=== PATIENT | male | born 1950 | race Caucasian/White ===

== ENCOUNTER 2018-02-02 17:15 | Emergency (ER) | payer MEDICARE, SELFPAY ==
[2018-02-02 17:16] VITALS: BP 159/98; PULSE 98; RESP 16; TEMP 36.1; O2SAT 98; BMI 31.8
[2018-02-02 17:22] VITALS: BP 176/84; PULSE 102; RESP 19; O2SAT 95
[2018-02-02] MEDS: MethylPREDNISolone 125 MG/2 ML Vial IV (17:38)
[2018-02-02] MEDS: DiphenhydrAMINE 50 MG/ML Syringe 25 MG IV (17:38)
--- NOTE | 2018-02-02 17:41 | NURSING ---
NO LW OR POA
[2018-02-02 17:46] VITALS: BP 147/90; PULSE 93; RESP 17; O2SAT 94
[2018-02-02 18:15] VITALS: BP 149/85; PULSE 86; RESP 14; O2SAT 97
--- NOTE | 2018-02-02 18:57 | ED.VISSUMM ---
- ER Visit Summary Date of Service: 02/02/18 Chief Complaint: Bee stings History of Present Illness: The patient is a 67 M with a sling to his right ear and right wrist. He has had some swelling to the area and he feels like he has some increased work of breathing. This happened about 30 minutes prior to arrival. Patient states that many years ago he had severe swelling with a bee sting. He has never been formally diagnosed with anaphylaxis but he was prescribed an EpiPen in the past. He has never used epinephrine. He did not take anything today. No other symptoms like GI symptoms or confusion. Physical Examination: Vital signs are unremarkable. He is afebrile. No acute distress. Sitting and breathing comfortably. He has erythema to his right ear helix and also erythema to his right wrist region. No stingers were visualized. Airway normal. Mouth and lips normal. Lungs are clear throughout. Heart regular. Abdomen soft and nontender. Alert and oriented. Appropriate for situation. Test Results: None indicated Emergency Department Course and Treatment: Patient was advised that skin changes plus respiratory difficulties indicates anaphylaxis. He feels that his symptoms are mild. Treatment options were discussed. He declined epinephrine. He would like to try steroids and antihistamines. I treated him with Solu-Medrol, Benadryl, and Pepcid. He was placed on a monitor. Patient was reevaluated after about an hour and a half. He had good resolution of his rash. He did have some mild erythema. No worsening symptoms or signs. His breathing had completely improved. Patient was advised about rebound and recurrent symptoms and delayed symptoms. We will prescribe Benadryl, Pepcid, and prednisone. Side effects were discussed. He will be discharged. Treatment Plan: As above Disposition: Discharged Impression: 1. Bee stings This note was generated with [employer] dictation software. It may contain incorrect words, spelling, and punctuation that were not noted in review of the chart prior to signing ED Disposition - Plan for ED Patient: Chief Complaint: Allergic Reaction Referrals: Orlando Brock MD [Primary Care Provider] -
--- NOTE | 2018-02-02 18:59 | ED.DEP ---
ED Disposition - Plan for ED Patient: Chief Complaint: Allergic Reaction Instructions: ED Bite Sting Insect Gen Allergic React Prescriptions: Famotidine [Pepcid] 20 mg PO DAILY #10 tab Prednisone 40 mg PO UD #16 tab DiphenhydrAMINE [Benadryl] 25 mg PO TID #15 cap Referrals: Orlando Brock MD [Primary Care Provider] -
[2018-02-02 19:08] VITALS: BP 135/80; PULSE 85; RESP 14; O2SAT 99
== END 2018-02-02 19:11 | disposition home or self-care (01) ==
LOC: ED 18:30
PROVIDERS: Emergency Provider Emergency Medicine; Family Provider Family Medicine; PCP Family Medicine
DX: T63.441A Toxic effect of venom of bees, accidental (unintentional), initial encounter (principal); L53.0 Toxic erythema; Y92.9 Unspecified place or not applicable; Z87.891 Personal history of nicotine dependence
CPT/HCPCS: 96374; 96375; 99284; A4216; J3490